=== PATIENT | female | born 1975 | race Caucasian/White ===

== ENCOUNTER 2016-06-13 18:22 | Inpatient (IN) | payer OTHER ==
[~2016-06-13] VITALS: Ht 170.2 cm; Wt 72.6 kg
--- NOTE | 2016-06-13 18:39 | NUR ---
NADJA ON PEER FROM [employer] AFTER PT CALLED 911 STATING SHE SAT IN HER CAR FOR ABOUT 25 MIN IN CLOSED GARAGE BEFORE SHE CHANGED HER MIND. PT ARRIVES [facility], CALM AND COOPERATIVE REPORTS SAME AND STATES "IT WAS A MISTAKE, I DON'T FEEL SUICIDAL AT ALL, I WOULD NEVER DO THAT TO MY KIDS." REPORTS HX OF BIPOLAR.
--- NOTE | 2016-06-13 18:39 | NUR ---
PT DIRECT TO ROOM 4, RADIATION MONITOR AWARE OF SITTER ORDER, PT WANDED BY SECURITY, 1 BELONGINGS BAG TAKEN TO CLOSET BY SECURITY AND PT'S PURSE GIVEN TO SITTERS TO INVENTORY. STEPHEN ADAMS AT BEDSIDE.
--- NOTE | 2016-06-13 18:56 | ED PSYCHIATRIC COMPLAINT ---
History of Present Illness General Chief Complaint: Psychiatric Related Complaint Stated Complaint: SUICIDE ATTEMPT SAT IN CAR IN CLOSED GARAGE BIBA Source: patient Exam Limitations: no limitations Vital Signs & Intake/Output Vital Signs & Intake/Output Vital Signs Date Time Temp Pulse Resp B/P Pulse O2 O2 Flow FiO2 Ox Delivery Rate 06/20 0753 97.6 96 93/70 06/19 1945 96.6 85 107/60 Allergies Coded Allergies: Sulfa (Sulfonamide Antibiotics) (HIVES 06/13/16) Triage Note: BIBA ON PEER FROM [employer] POLICE AFTER PT CALLED 911 STATING SHE SAT IN HER CAR FOR ABOUT 25 MIN IN CLOSED GARAGE BEFORE SHE CHANGED HER MIND. PT ARRIVES AAO, CALM AND COOPERATIVE REPORTS SAME AND STATES "IT WAS A MISTAKE, I DON'T FEEL SUICIDAL AT ALL, I WOULD NEVER DO THAT TO MY KIDS." REPORTS HX OF BIPOLAR. Triage Nurses Notes Reviewed? yes HPI: 40-year-old female history of depression/bipolar disorder, suicide attempts in the past, brought in by ambulance with police on a peer after a suicide attempt. Patient states that she sat in her car with the car running in her garage with the garage doors closed attempt to kill herself approximately 25-30 minutes. She started feeling nauseous and lightheaded and started thinking about her 3 children, she changed her mind with going through with the suicide attempt and She feels though she cannot leave her kids without a mother, she turned off the car, went into the house and called 911. She states that the officers inside apartment checked the house for carbon monoxide poisoning and management was safe for her family to return, no was in the house at the time of the attempt. She no longer feels suicidal. She has previously attempted take pills into his head attempts, she denies alcohol or drug use or taking any pills today in the attempt to take her own life. Her children are at home with her and [id number] (BRYAN MITCHELL,HAYDEE) Reconcile Medications Aripiprazole (Abilify) 5 MG TABLET 5 MG PO 0800 mood stabilization Take 1 tablet by mouth every morning. Bupropion HCl (Wellbutrin XL) 150 MG TAB.ER.24H 1 TAB PO QAM depression Take 1 tablet by mouth daily. Escitalopram Oxalate (Lexapro) 10 MG TABLET 10 MG PO DAILY anxiety/depression Take 1 tablet by mouth every morning. Lamotrigine (Lamictal) 100 MG TABLET 100 MG PO BID MOOD STABILIZATION Take 1 tablet by mouth twice daily. [place] Carbonate 300 MG CAPSULE 300 MG PO 0800,2200 mood stabilization Take 1 capsule by mouth twice a day. Melatonin 3 MG TABLET 3 MG PO AT BEDTIME insomnia Take 1 tablet by mouth at bedtime. (MICHELLE COLORADO MD) Past History Travel History Traveled to [place] past 21 day No Medical History Any Pertinent Medical History? see below for history Psychiatric: bipolar disease, depression Psychosocial History What is your primary language Indonesian (HAYDEE BHARDWAJ) Surgical History Surgical History: non-contributory Family History Hx Contributory? No (MICHELLE COLORADO MD) Review of Systems Review of Systems Constitutional: Reports: see HPI. EENTM: Reports: no symptoms. Respiratory: Reports: no symptoms. Cardiovascular: Reports: no symptoms. GI: Reports: no symptoms. Genitourinary: Reports: no symptoms. Musculoskeletal: Reports: no symptoms. Skin: Reports: no symptoms. Neurological/Psychological: Reports: see HPI. Hematologic/Endocrine: Reports: no symptoms. Immunologic/Allergic: Reports: no symptoms. All Other Systems: Reviewed and Negative (HAYDEE BHARDWAJ) Physical Exam Physical Exam General Appearance: well developed/nourished, mild distress Head: atraumatic Eyes: Bilateral: PERRL, EOMI. Ears, Nose, Throat: normal pharynx, normal ENT inspection, hearing grossly normal Neck: normal inspection, supple Respiratory: normal breath sounds Cardiovascular: regular rate/rhythm Gastrointestinal: soft, non-tender Extremities: normal range of motion Neurological/Psychiatric: no motor/sensory deficits, awake, alert, normal mood/ affect, calm, transfusion nurse II-XII nml as tested Appearance/Memory/Insight: appropriate appearance, appropriate insight, denies illness Behavoir/Eye Contact/Speech: cooperative Thoughts/Hallucinations: normal thought pattern, no apparent hallucination Skin: intact, normal color, warm/dry (HAYDEE BHARDWAJ) SAD PERSONS Done? CRISIS CONSULT OBTAINED (MIROSLAVA BERNARD,MICHELLE Lopez) Progress Differential Diagnosis: dementia, drug intoxication, drug overdose, drug withdrawal, electrolyte abnormality, encephalitis, hypoglycemia, hypothyroidism, IC hem/mass/tumor, meningitis Plan of Care: Orders Procedure Date/time Status Discharge from inpatient psych 06/20 UNK Active Hand-Off Endorsed To: MICHELLE COLORADO MD Endorsed Time: 1929 Pending: consult (psych) Comments: Patient placed on supplemental oxygen via nasal cannula for possible carbon monoxide toxicity. She is given Zofran 4 mg ODT for nausea and Tylenol for her headache Patient's carbon monoxide level is within normal limits. She is medical cleared for psychiatric evaluation. She will be evaluated by our crisis condition. She is signed out to Dr. Colorado at change of shift (HAYDEE BHARDWAJ) Departure Departure Condition: Stable Referrals: MENA ALMENDAREZ (PCP/Family) Departure Forms: Customer Survey General Discharge Information (HAYDEE BHARDWAJ) Departure Disposition: STILL A PATIENT Clinical Impression Primary Impression: Suicidal ideations Prescriptions: Current Visit Scripts Lamotrigine (Lamictal) 100 MG PO BID #28 TAB Take 1 tablet by mouth twice daily. Bupropion HCl (Wellbutrin XL) 1 TAB PO QAM #14 TAB Take 1 tablet by mouth daily. Escitalopram Oxalate (Lexapro) 10 MG PO DAILY #14 TAB Take 1 tablet by mouth every morning. Aripiprazole (Abilify) 5 MG PO 0800 #14 Take 1 tablet by mouth every morning. [place] Carbonate 300 MG PO 0800,2200 #28 Take 1 capsule by mouth twice a day. Melatonin 3 MG PO AT BEDTIME #14 TAB Take 1 tablet by mouth at bedtime. Psych Admission Note Psychiatric Admission: I have seen and evaluated DARREL PARADA. I have also reviewed all the pertinent lab results and diagnostic results. DARREL PARADA will be admitted to our inpatient Psychiatric unit for treatment and care. PA/DIRECTOR EMPLOYEE COMMUNICATIONS Co-Sign Statement Statement: ED Attending supervision documentation- [X] I saw and evaluated the patient. I have also reviewed all the pertinent lab results and diagnostic results. I agree with the findings and the plan of care as documented in the PA's/DIRECTOR EMPLOYEE COMMUNICATIONS's documentation. [X] I have reviewed the ED Record and agree with the PA's/DIRECTOR EMPLOYEE COMMUNICATIONS's documentation. [] Additions or exceptions (if any) to the PAs/DIRECTOR EMPLOYEE COMMUNICATIONS's note and plan are summarized below: [Patient has been seen and evaluated with mental health clinician. Patient is medically cleared and is stable for admission to Inpatient Psychiatry.] (MICHELLE COLORADO MD) summarized below: [Patient has been seen and evaluated with mental health clinician. Patient is medically cleared and is stable for admission to Inpatient Psychiatry.] (MICHELLE COLORADO MD) Pending: consult (psych) Comments: Patient placed on supplemental oxygen via nasal cannula for possible carbon monoxide toxicity. She is given Zofran 4 mg ODT for nausea and Tylenol for her headache Patient's carbon monoxide level is within normal limits. She is medical cleared for psychiatric evaluation. She will be evaluated by our crisis condition. She is signed out to Dr. Colorado at change of shift (HAYDEE BHARDWAJ) Departure Departure Condition: Stable Referrals: MENA ALMENDAREZ (PCP/Family) Departure Forms: Customer Survey General Discharge Information (HAYDEE BHARDWAJ) Departure Disposition: STILL A PATIENT Clinical Impression Primary Impression: Suicidal ideations Psych Admission Note Psychiatric Admission: I have seen and evaluated DARREL PARADA. I have also reviewed all the pertinent lab results and diagnostic results. DARREL PARADA will be admitted to our inpatient Psychiatric unit for treatment and care. PA/DIRECTOR EMPLOYEE COMMUNICATIONS Co-Sign Statement Statement: ED Attending supervision documentation- [X] I saw and evaluated the patient. I have also reviewed all the pertinent lab results and diagnostic results. I agree with the findings and the plan of care as documented in the PA's/DIRECTOR EMPLOYEE COMMUNICATIONS's documentation. [X] I have reviewed the ED Record and agree with the PA's/DIRECTOR EMPLOYEE COMMUNICATIONS's documentation. [] Additions or exceptions (if any) to the PAs/DIRECTOR EMPLOYEE COMMUNICATIONS's note and plan are summarized below: [Patient has been seen and evaluated with mental health clinician. Patient is medically cleared and is stable for admission to Inpatient Psychiatry.] (MIROSLAVA BERNARD,MICHELLE Lopez)
[2016-06-13] MEDS ORDERED: CLONAZEPAM0.5 M2 PO (19:10)
[2016-06-13] MEDS ORDERED: OXYCODONE HCL10 M2 PO (19:10)
[2016-06-13] MEDS ORDERED: ESCITALOPRAM OX10 MG PO (19:11)
[2016-06-13] MEDS ORDERED: CARISOPRODOL350 M1 PO (19:11)
--- NOTE | 2016-06-13 19:11 | NUR ---
BLOOD SENT (SST/LAV) AND [facility] CALLED TO RT FOR PICKUP, PLACED ON ICE
[2016-06-13] MEDS ORDERED: BUPROPION XL150 MG PO (19:12)
[2016-06-13] MEDS ORDERED: LIDOCAINE1 EACH TOP (19:12)
[2016-06-13] MEDS ORDERED: LAMOTRIGINE100 M2 PO (19:13)
[2016-06-13] MEDS ORDERED: TREXIMET 85-501 EACH PO (19:13)
[2016-06-13] MEDS ORDERED: DUEXIS 800-26.1 EACH PO (19:14)
[2016-06-13 19:17] LABS: ABSOLUTE BASOPHIL COUNT 0 /CUMM (0.0-0.2); ABSOLUTE EOSINOPHIL COUNT 0.2 /CUMM (0.0-0.7); ABSOLUTE GRANULOCYTE CT 2.3 /CUMM (1.4-6.5); ABSOLUTE LYMPH COUNT 1.9 /CUMM (1.2-3.4); ABSOLUTE MONOCYTE COUNT 0.4 /CUMM (0.10-0.60); BASOPHIL % 0.6 % (0.0-2.0); EOSINOPHIL % 4.9 % (0-5); GRANULOCYTE % 47.5 % (42.2-75.2); HEMATOCRIT 37.9 % (37-47); MEAN CORPUSCULAR HGB 30.5 PG (27.0-31.0); MEAN CORPUSCULAR HGB CONC 33.7 G/DL (33.0-37.0); MEAN CORPUSCULAR VOLUME 90.5 FL (81.0-99.0); MEAN PLATELET VOLUME 7.6 FL (7.4-10.4); PLATELET COUNT 233 /CUMM (130-400); RBC DISTRIBUTION WIDTH 13.9 % (11.5-14.5); RED BLOOD CELL CT 4.19 /CUMM (4.20-5.40); WHITE BLOOD CELL COUNT 4.8 /CUMM (4.8-10.8)
--- NOTE | 2016-06-13 19:20 | NUR ---
MEDICATED PER EMAR FOR NAUSEA AND C/O HEADACHE, CRISIS AT BEDSIDE
--- NOTE | 2016-06-13 20:24 | NUR ---
PT MEDICALLY CLEARED. PT HAS BEEN COOPERATIVE AND FAMILY ALLOWED TO VISIT. PT BECAME VERY UPSET WHEN CRISIS INFORMED HER OF POSSIBLE ADMISSION, YELLING "I'M NOT STAYING IN THE HOSPITAL!" PT CALMER WITH FAMILY AT BEDSIDE. REPORT GIVEN TO CRISIS RN IRENA AND PT WALKED TO [facility] BY STAFFING MANAGER.
--- NOTE | 2016-06-13 20:26 | ED PSYCH CRISIS CONSULTATION ---
Crisis Consult Basic Assessment Date of Consult: 06/13/16 Responsible Person/Accompanied By: None - Brought in by ambulance. Insurance Authorization: Insurance #1: Insurance name: [facility] Phone number: Policy number: [id number] Group number: [id number] Authorization number: ED Provider: Patient's ED Provider: HAYDEE BHARDWAJ Primary Care Physician: Patient's PCP: MENA ALMENDAREZ PCP's Current Psychiatrist: Shima Taylor, [facility] Chief Complaint: Psychiatric Related Complaint Patient's Quote: "I have bipolar - since 27...I would love for this to be over. " Present Illness: Patient is a 40 year old female who was brought in to the emergency department by ambulance after pt. called after attempting suicide by carbon monoxide asphyxiation. Patient was home by herself and went to the [facility] and stayed in her vehicle with the engine on and doors closed for about ~25 minutes. Patient decided to end the attempt after having thoughts of her family and her children. Patient has a history of bipolar depression since age 27. Patient reports onset of depressive symptoms since adolescence. Patient reports two prior suicide attempts i.) age 17 by vehicular carbon monoxide asphyxiation in an attempt similar to today's ii.) age 23 by ingestion of several flexiril pills. Patient has been treated for more than ten years by her current CATTLE KNOCKER (Shima Sharma) and has been relatively stable during that time. Patient has infrequent appointments with the CATTLE KNOCKER ~ once ever six months. Patient often has medication management appointments by phone per CATTLE KNOCKER. Pt. also was in psychotherapy with JAMI Sutherland. A barrier to more frequent appointments is distance as both providers are in the [place] area. Patient is prescribed Wellbutrin, Lexapro, and Lamictal. Patient was previously on Abilify but discontinued due to weight increase concerns. Patient reports her CATTLE KNOCKER has recently initiated the medication Vraylar but this medication has been difficult to obtain. Patient does not cite any specific triggers to today's suicide attempt. Patient has suffered significant losses in the past 6 months - pt.'s brother overdosed in December and her grandmother . Pt. has 3 young children ( 11 year old & 3 year old twins) which she indicates has been stressful. 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 Patient is not currently endorsing suicidal ideation. Patient is oriented x3 and denies current or past audiovisual hallucinations. Patient presents euthymic with flat affect. Patient is not interested in an inpatient psychiatric admission due to concerns of childcare. Patient's and family are supportive of patient and are willing to be involved in on-going treatment recommendations. Patient's Address: [address] [place] [address] [place] Other Phone Number: Who Do You Live With? Significant Other Family/Informants Interviewed: Allergies - Coded Allergies: Sulfa (Sulfonamide Antibiotics) (HIVES 06/13/16) Current Medications - Scheduled Medications Bupropion HCl (Bupropion XL) 150 MG TAB.ER.24H 1 TAB PO DAILY MENTAL HEALTH # 30 (Reported) Entered as Reported by TRENT ROSENTHAL on 06/13/161911 Escitalopram Oxalate 10 MG TABLET 1.5 TAB PO DAILY MENTAL HEALTH #45 ( Reported) Entered as Reported by TRENT ROSENTHAL on 06/13/161910 Lamotrigine 100 MG TABLET 250 MG PO DAILY MENTAL HEALTH #30 (Reported) Entered as Reported by TRENT ROSENTHAL on 06/13/161912 Scheduled PRN Medications Carisoprodol 350 MG TABLET 1 TAB PO PRN MUSCLE SPASMS #90 (Reported) Entered as Reported by TRENT ROSENTHAL on 06/13/161910 Clonazepam 0.5 MG TABLET 1 TAB PO PRN ANXIETY #60 (Reported) Entered as Reported by TRENT ROSENTHAL on 06/13/161909 Ibuprofen/Famotidine (Duexis 800-26.6 MG Tablet) 800 MG-26.6 MG TABLET 1 TAB PO PRN PAIN (Reported) Entered as Reported by TRENT ROSENTHAL on 06/13/161913 Lidocaine 5 % ADH..PATCH 1 PAT TOP PRN PAIN #30 (Reported) Entered as Reported by TRENT ROSENTHAL on 06/13/161911 Oxycodone HCl 10 MG TABLET 1 TAB PO PRN PAIN #200 (Reported) Entered as Reported by TRENT ROSENTHAL on 06/13/161909 Sumatriptan Succ/Naproxen Sod (Treximet 85-500 MG Tablet) 85 MG-500 MG TABLET 1 TAB PO PRN MIGRAINES #9 (Reported) Entered as Reported by TRENT ROSENTHAL on 06/13/161912 Laboratory Results: Laboratory Tests 06/13/161906: Bicarbonate Actual 27 H, Mixed VBG pH 7.35, Mixed VBG pCO2 49, Mixed VBG O2 Saturation 19 L, P-50 (Temp Corrected) YES, Carboxyhemoglobin 0.8 L, O2 Concentration % 2.5L, Temperature 96.7 L, O2 Delivery Method NC, Anion Gap 6, Estimated GFR > 60, BUN/Creatinine Ratio 17.5, Glucose 91, Calcium 10.9 H, Total Bilirubin 0.3, AST 19, ALT 30, Alkaline Phosphatase 46, Total Protein 6.9, Albumin 4.1, Globulin 2.8, Albumin/Globulin Ratio 1.5, CBC w Diff NO MAN DIFF REQ, RBC 4.19 L, MCV 90.5, MCH 30.5, RDW 13.9, MPV 7.6, Gran % 47.5, Lymphocytes % 39.7, Monocytes % 7.3, Eosinophils % 4.9, Basophils % 0.6, Absolute Granulocytes 2.3, Absolute Lymphocytes 1.9, Absolute Monocytes 0.4, Absolute Eosinophils 0.2, Absolute Basophils 0, PUBS MCHC 33.7, Phlebotomy Draw Site LEFT VENOUS AC, Serum Alcohol < 10.0 06/13/16 183: Urine Opiates Screen 113.00, Methadone Screen 42, Barbiturate Screen < 60, Ur Phencyclidine Scrn < 6.00, Amphetamines Screen < 100, U Benzodiazepines Scrn < 85, Urine Cocaine Screen < 50, Urine Cannabis Screen < 5.00 Past History Past Medical History Any Pertinent Medical History? 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 Psychiatric Treatment History Psych Treatment Psychiatric Treatment Yes Inpatient Treatment Yes ([facility]) Outpatient Treatment Yes (JAMI Mchugh & Halina Sharma [facility]) Location of Treatment [place], [place] Reason for Treatment Bipolar depression Dates of Treatment Same CATTLE KNOCKER for past 10+ years Response to Treatment CATTLE KNOCKER reports patient has been stable for extended period of time before this episode. Diagnosis by History: Major depressive disorder Bipolar disorder Substance Use/Abuse History Drug Use/Abuse Substances Used/Abused No First Use Patient denies Last Used N/A How much used/taken - How often - For how long - Route of use - Substance Abuse Treatment Substance Abuse Treatment Past Substance Abuse [place] No Inpatient Treatment No Location of Treatment - Reason for Treatment - Dates of Treatment - Response to Treatment - Comments: - Current Mental Status Mental Status Orientation: Person, Place, Situation Affect: Flat Speech: Pressured Neuro-vegetative: Anhedonia, Loss of Interest Appearance Appearance- Dress/Hygiene: Patient dressed in hospital attire with no remarkable features. Behaviors Thought Process: WNL Thought Content: WNL Memory: WNL Insight: Fair SI/HI Risk Assessment Past Suicidal Ideation/Attempts Yes (w/ attempts at age 17 & 23) Current Suicidal Ideation/Att Yes (Patient attempted this evening) Past Homicidal Ideation/Att: No Current Homicidal Ideation/Attempts No Degree of Intent: During evaluation,patient denies. Danger To: Self Gravely Disabled: Poor Impulse Control, Poor Judgment, Recent attempt Risk Factors: access to lethal means, history of suicide atmpts, SA/MH hospitalized, poor impulse control, harm to animals, lack of outcome concern Lethality Ratin PTSD Checklist PTSD Done? patient declined ED Management Sitter: Yes Restraints: No DSM5/PS Stressors/Medical Prob Diagnosis' (DSM 5, Stressors, Medical): F31.8 Bipolar Disorder II, Depressed Current GAF: 25 Comments: Recent suicide attempt Departure Disposition Psych Medical Clearance Date: 06/13/16 Medically Cleared at: 1929 Time Started: 1929 Time Ended: 2029 Psychiatrist Consulted: Dr. Carl Almanza M.D. Date Disposition Established: 06/13/16 Time Disposition Established: 1999 Plan for Disposition - Modality: Inpatient Psychiatry Facility: [facility] Rationale for Disposition: Patient will be admitted to [facility] on a voluntary basis (consent form signed). Patient is assessed with moderate to high risk of harm to self due to recent attempt of suicide. Although patient is currently denying suicidal ideation, intent or planning - further psychiatric evaluation and inpatient admission is warranted. This tech writer presented crisis evaluation and high - risk assessment to on-call psychiatrist Dr. Almanza - he is in agreement with disposition. Type of IP Admission: Voluntary Additional Instructions: Contact patient's CATTLE KNOCKER for discharge planning. Patient's would like to be involved with patient's treatment and discharge planning. Referrals CURTIS MITCHELL,MENA CEDILLO (PCP/Family)
--- NOTE | 2016-06-13 21:40 | NUR ---
Crisis consultation completed - patient's evaluation reviewed with on-call psychiatrist Dr. Almanza. Patient to be admitted to [facility] for a voluntary psychiatric admission. Voluntary consent form signed - Order to inpatient done
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
--- NOTE | 2016-06-13 22:09 | NUR ---
PT MEDICATED WITH ROXICODONE 10MG FOR HEADACHE, PIS 12/15. PT STATES TYLENOL DID NOT PROVIDE RELIEF
--- NOTE | 2016-06-13 23:20 | NUR ---
PT MEDICATED WITH KLONOPIN 0.5MG FOR ANXIETY. PT REFUSED PEPCID AND LEXAPRO, STATING SHE ONLY TAKES LEXAPRO IN THE MORNING. PT REPORTS HEADACHE REMAINS.
--- NOTE | 2016-06-13 23:43 | NUR ---
ASSUMED CARE OF PT PER ENA OSBORN. PT SLEEPING ON BED WITH RR, DOOR IS AJAR, SITER IN PLACE. WILL CONTINUE TO MONITOR
--- NOTE | 2016-06-14 01:47 | NUR ---
REPORT GIVEN TO ENA MILLER. MST JARED AND BILINGUAL PATIENT SUPPORT CASEWORKER JUNE MOVING PT DOWN TO CPS IN WHEEL CHAIR
[2016-06-14 02:34] VITALS: BP 101/69
--- NOTE | 2016-06-14 02:50 | NUR ---
PT ARRIVED VIA W/C FROM ER. FLAT AFFECT NOTED BUT CAN EASILY SMILE. [facility] CONTACT, SOFT SPOKEN AND OFFERS INFORMATION THROUGH INTERVIEW. NO OUTSTANDING MEDICAL ISSUES REPORTED.LIVES WITH AND 3 CHLDREN , 1 CHILD AND A SET OF TWWINS. NO ACTIVE SUICIDAL IDEATION NOTED. CONTRACTED FOR SAFETY.
--- NOTE | 2016-06-14 04:55 | NUR ---
SLEPT ONCE SHE WAS SHOWN TO HER ROOM. NO COMPLAINTS
[2016-06-14 07:55] VITALS: BP 97/51
--- NOTE | 2016-06-14 12:04 | CPS MD/APRN INITIAL ASSE PSYCH ---
Psychiatric Admission Teller's Note Reviewed: Yes Patient Seen and Examined: Yes Identifying Information: Client is a 40 year old female. Chief Complaint: "I'm fine" Reaction to Hospitalization: Client voluntarily came to the inpatient psychiatry unit but is hopeful to discharge soon to return to her young children. History of Present Illness Onset of Illness: Client came to ED on 06/13/16 after suicide attempt by CO poisoning during which she sat in her car, in the garage, with the car on for 25 minutes before deciding she did not want to kill herself. Client then dialed 911. Circumstances Leading to Admission: Client reports that she has had bipolar depression since age 27 but is unable to identify a specific precipitating event. Of note, her brother recently accidentally overdosed on opiates and her grandmother in December 2015. Problem(s) Justifying Need for Admission: suicide attempt (hx 3 suicide attempts total) symptoms of bipolar disorder Past Psychiatric History Past Diagnosis(es)- if any: depression bipolar depression bipolar I disorder Past Precipitating Factors- if any: Client reports that she has had several periods of severe depression for which she is unable to identify precipitating factors. She has had one episode of shala which was precipitated by misdiagnosis of MDD and antidepressant use without mood stabilizer. - Include inpatient and outpatient treatment Treatment History: Client has been in treatment for 10+ years with Diana Sharma APRN (release in chart) and Raz FARRELL. Past hospitalization at [facility] age 17 and age 23 post suicide attempts. Client endorses many years without symptoms prior to this episode. History of Suicide Attempts or Gestures Age 17 CO poisoning Age 23 intentional OD flexeril Age 40 CO poisoning Substance Abuse History: -denies tobacco use -denies other drug use (cannabis, hallucinogen, opiates, benzodiazepine abuse, cocaine) -endorses alcohol use, 1 glass of wine 2-4x per week Educated client on the risks of combining medicaitons with alcohol, particularly wellbutrin. Allergies: Coded Allergies: Sulfa (Sulfonamide Antibiotics) (HIVES 06/13/16) Home Med List: wellbutrin xl 150mg daily lexapro 15mg daily lamictal 250mg HS klonopin 0.5mg bid prn --endorses typically only taking at HS - Include any medical condition(s) that may - impact the patient's recovery/remission Past Medical History: -hx hammer toe -hx tonsillectomy -hx partial hysterectomy -hx hernia repair Past History Medical History Any Pertinent Medical History? unobtainable Neurological: NONE EENT: NONE Cardiovascular: NONE Respiratory: NONE Gastrointestinal: NONE Hepatic: NONE Renal: NONE Musculoskeletal: NONE Psychiatric: bipolar disease, depression Endocrine: NONE Blood Disorders: NONE Cancer(s): NONE SKEIN TIER/Reproductive: NONE History of MRSA: No Isolation History: Standard Surgical History Surgical History: BACK SURGERY PARTIAL HYSTERECTOMY Psychiatric Family/Social Hx Family History Psychiatric Illness: mother- borderline personality disorder Substance Use: brother- opiate use disorder ( 12/2015 OD) Suicides: mother- suicide attempt Social History Living Situation: with and children Significant Relationships (family/friends): Lists , mother, aunt, friends, dad, and uncle as supports. Education: Completed some college and attended dance school. 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 Legal: Denies. Healthly Behaviors Screening Tobacco Screening Tobacco Use from ED Docu: Never used - If tobacco counseling indicated - the following topics are required. - #1 Recognizing dangerous situations. - #2 Coping Skills. - #3 Basic information about quitting. Status of Tobacco Cessation Counseling: N/A B/C NO TOB USE Cessation Med Status: No Tobacco Use last 30d Alcohol Screening - ETOH screen POS if BAL >=80 or Audit-C>= M4/F3 Audit-C Score from Diag Assess: 4 Blood Alcohol Level: Laboratory Tests 06/13 1907 Toxicology Serum Alcohol (<10 MG/DL) < 10.0 Alcohol Use Screening Results: Pos per Audit C &/or BAL - If ETOH counseling indicated - the following topics are required. - #1 Express concern about the patient's - drinking at unhealthy levels, include informing - of national norms for moderate drinking: - men <= 14 drinks/week, max 4 drinks/occasion - women <= 7 drinks/week, max 3 drinks/occasion - #2 Providing feedback, including linking alcohol to - negative physical effects (liver injury, hypertension) - negative emotional effects (relationship problems and - depression) - negative occupational consequences (reduced work - performance) - #3 Advising the patient to abstain from alcohol or - to drink below national norms for moderate drinking - (as listed above). Status of ETOH Use Counseling: #1, #2 AND #3 Completed. Metabolic Screening - Screen if on a Neuroleptic Medication - Metabolic screening should include: - Blood Pressure, BMI, Glucose or Hgb A1c, & a - Lipid profile from within the past 365 days. Metabolic Screening ([x]) Not Applicable, patient not on a neuroleptic. OR () Patient on a neuroleptic(s) . Enter below results for Glucose or Hemoglobin A1C, and lipid panel if obtained during the last 365 days. BMI: 25.000 Blood Pressure: 97/51 Laboratory Results (If applicable): [ Lab Cholesterol 182 MG/DL 08/06/15 0938 Cholesterol/HDL Ratio 3 % 08/06/15 09 Glucose 91 mg/dL 06/13/16 1907 HDL Cholesterol 53 mg/dL 08/06/15 09 LDL Cholesterol, Calc 121 mg/dL 08/06/15 0938 Triglycerides 43 mg/dL 08/06/15937 ] Exam and Plan Mental Status Examination Ambulation Status: steady Appearance: casually dressed Attitude towards examiner: cooperative Psychomotor activity: calm Behavior: attentive and engaged Quality of speech: normal rate, rhythm, tone, volume Affect: congruent Mood: "fine" Suicidal Ideation: Denies Homicidal Ideation: Denies Hallucinations: Denies Paranoid/Delusional Material: Denies Difficulties with thought organization: none Thoughts goal-oriented and logical. Insight: limited insight into severity of suicide attempt Judgment: fair Orientation: oriented x4 Cognition: grossly intact Memory Function: grossly intact Estimate of intellectual functioning: average Assets/Strengths Patient Identified Assets/Strengths: "I am a good mom. I am really good at taking care of the kids. I do a good job at work." Impression/Plan Impression and Plan: Client presents with symptoms of bipolar disorder. She endorses predominant depression which includes feeling "low [mood], crappy", poor sleep, increased anxiety, anhedonia, and at times suicidal ideation/attempts. She endorses one manic episode >10 years ago where she had risky behaviors, decreased need for sleep, decreased eating, and hyperactivity. This manic episode was allegedly augmented by being misdiagnosed as MDD and being on antidepressants without a mood stabilizer. Client denies any history of psychotic features. Previous Medication Trials: -rexulti -abilify (weight gain but helpful) -paxil (endorses paxil withdrawal when tapered off) -client reports she was successfully on decreased doses of her medications during Outpatient prescriber recently added vraylar but client had not picked up prescription yet. - Include all active medical diagnosis that require tx DSM 5 Diagnosis(es): Bipolar I Disorder MRE depressed severe (F31.4) - Initial Tx Plan for Active Psych & Medical Conditions Treatment Plan: Client is a 40 year old female who comes to [facility] after presenting to the ED after a suicide attempt. Client was home alone when she attempted suicide by CO poisoning, however, after 25 minutes client decided she did not want to and she called 911. While in the hospital her is home caring for her children. Client endorses a history of bipolar I disorder without psychotic features, and she agrees with this diagnosis. Client is motivated to return home to her family. Client reports many years stable on current medication regimen, but she is agreeable to increase lamictal to 300mg daily total (150mg BID). She has been on 250mg for many months and endorses taking it regularly. This dose was confirmed by medication reconciliation. This senior mortgage underwriter recommended starting lithium for suicide prevention but client was not agreeable. This senior mortgage underwriter encouraged client to take time tonight and consider the addition of lithium tomorrow given her previous suicide attempts and recent suicide attempt. Will continue wellbutrin 150mg XL daily and lexapro 15mg daily at this time. Client also can utilize PRN klonopin. Depression 0/10 (10 worst) Anxiety 0/10 (10 worst) Denies SI/HI, AH/VH, PI. Denies hopeless/helpless emotions. Client reports that she was on combination drug alleve/pepcid which she used PRN and she does not want to be on pepcid while in the hospital. Denies stomach upset. Discontinue pepcid. Ordered TSH, FT4. - Factors that would help patient function - in a less restrictive setting. Factors: -absence of suicidal ideation -stablization of mood -treatment adherence
--- NOTE | 2016-06-14 12:43 | IP INCIDENTAL NOTE PSYCH ---
Incidental Note Notation: Phone call to outpatient prescriber Diana Sharma APRN. She reports that client has been in treatment with her since 2002 when she was on paxil and wellbutrin. In her opinion, client has more or less been "stable for 13 years." She reports client has bipolar disorder and overall has tolerated medications well. She reports this suicide attempt "came out of the blue" and she endorses client has had stressors including: of grandmother, of brother, children recently all having the stomach flu, and favorite nephew recently moving out of state. She has no problems or objections with lamcital increase. She states that previously client has tolerated abilify or rexulti adjunct well in periods of depression, however with time client experienced weight gain.
[2016-06-14 13:01] VITALS: BP 119/63
--- NOTE | 2016-06-14 14:22 | NUR ---
PT VISIBLE IN THE [facility] TODAY. HER GOAL WAS TO ADJUST TO THE [facility]. PT HAS BEEN COOPERATIVE WITH STAFF, AND INTERACTING WELL WITH OTHERS. IN THE [facility] PT HAS BEEN ATTENDING ALL OF THE GROUPS. WHEN ASKED PT DENIES THOUGHTS OF HURTING HERSELF.
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
--- NOTE | 2016-06-14 16:02 | SOCIAL WORKER PROG NOTE PSYCH ---
Social Work Progress Note Progress Note Pt reports she misses her kids, but is aware of the seriousnessof her suicide attempt, she feels overwhelmed, and stressed. 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 Pt reports she has Bipolar and is not being managed as it was before, since the of her twins. Pt reports she misses them, but states its "better to be here, than writing my obituary".
[2016-06-14 16:42] VITALS: BP 117/63
--- NOTE | 2016-06-14 19:09 | History & Physical ---
General Information and HPI MD Statement: I have seen and personally examined DARREL PARADA and documented this H&P. The patient is a 40 year old F who presented with a patient stated chief complaint of "I have bipolar since age 27 and I would love for this to be over". Source of Information: patient Exam Limitations: no limitations History of Present Illness: 40-year-old female with history of bipolar disorder called 911 after attempting suicide by carbon monoxide asphyxiation. Changed her mind and called 911 brought to the hospital face has had she has history of bipolar disease his age of 27. Has had 2 previous suicide attempts due to all this she is admitted for evaluation and treatment Allergies/Medications Allergies: Coded Allergies: Sulfa (Sulfonamide Antibiotics) (HIVES 06/13/16) Home Med list Bupropion HCl (Bupropion XL) 150 MG TAB.ER.24H 1 TAB PO DAILY MENTAL HEALTH ( Reported) Carisoprodol 350 MG TABLET 1 TAB PO PRN MUSCLE SPASMS (Reported) Clonazepam 0.5 MG TABLET 1 TAB PO PRN ANXIETY (Reported) Escitalopram Oxalate 10 MG TABLET 1.5 TAB PO DAILY MENTAL HEALTH (Reported) Ibuprofen/Famotidine (Duexis 800-26.6 MG Tablet) 800 MG-26.6 MG TABLET 1 TAB PO PRN PAIN (Reported) Lamotrigine 100 MG TABLET 250 MG PO DAILY MENTAL HEALTH (Reported) Lidocaine 5 % ADH..PATCH 1 PAT TOP PRN PAIN (Reported) Oxycodone HCl 10 MG TABLET 1 TAB PO PRN PAIN (Reported) Sumatriptan Succ/Naproxen Sod (Treximet 85-500 MG Tablet) 85 MG-500 MG TABLET 1 TAB PO PRN MIGRAINES (Reported) Compliance With Home Meds: FAIR Past History Travel History Traveled to [place] past 21 day No Medical History Any Pertinent Medical History? unobtainable Neurological: NONE EENT: NONE Cardiovascular: NONE Respiratory: NONE Gastrointestinal: NONE Hepatic: NONE Renal: NONE Musculoskeletal: NONE Psychiatric: bipolar disease, depression Endocrine: NONE Blood Disorders: NONE Cancer(s): NONE JUNIOR SYSTEMS ANALYST/Reproductive: NONE History of MRSA: No Isolation History: Standard Surgical History Surgical History: non-contributory Past Family/Social History Psychosocial History Where do you live? 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 Exam & Diagnostic Data Last 24 Hrs of Vital Signs/I&O Vital Signs Date Time Temp Pulse Resp B/P Pulse O2 O2 Flow FiO2 Ox Delivery Rate 06/14 1642 77 117/63 06/14 1301 90 119/63 06/14 0755 97.1 71 97/51 06/14 0234 96.7 61 18 101/69 96 06/13 2322 98.2 80 16 120/84 98 Room Air 06/13 2321 Room Air 06/13 1947 99 Intake & Output 06/14 1600 06/14 0800 06/14 0000 Intake Total Output Total Balance Patient 160 lb 160 lb Weight Physical Exam General Appearance Alert, Oriented X3, Cooperative, No Acute Distress Skin No Rashes, No Breakdown HEENT Atraumatic, PERRLA, EOMI, Mucous Membr. moist/pink Neck Supple, No JVD, No thryomegaly, +2 Carotid Pulse wo Bruit Lymphatic Axillary nl, Cervical nl Cardiovascular Regular Rate Lungs Clear to Auscultation, Normal Air Movement Abdomen Normal Bowel Sounds, Soft, No Tenderness, No Hepatospenomegaly, No Masses Neurological Exam Findings: Normal Gait, Normal Speech, Strength at 5/5 X4 Ext, Normal Tone, Sensation Intact, Cranial Nerves 3-12 NL, Reflexes 2+ Cranial Nerves II through XII: Intact Last 24 Hrs of Labs/Anuj: Laboratory Tests 06/13/161906: Bicarbonate Actual 27 H, Mixed VBG pH 7.35, Mixed VBG pCO2 49, Mixed VBG O2 Saturation 19 L, P-50 (Temp Corrected) YES, Carboxyhemoglobin 0.8 L, O2 Concentration % 2.5L, Temperature 96.7 L, O2 Delivery Method NC, Anion Gap 6, Estimated GFR > 60, BUN/Creatinine Ratio 17.5, Glucose 91, Calcium 10.9 H, Total Bilirubin 0.3, AST 19, ALT 30, Alkaline Phosphatase 46, Total Protein 6.9, Albumin 4.1, Globulin 2.8, Albumin/Globulin Ratio 1.5, TSH 3.350, Free T4 0.94, CBC w Diff NO MAN DIFF REQ, RBC 4.19 L, MCV 90.5, MCH 30.5, RDW 13.9, MPV 7.6, Gran % 47.5, Lymphocytes % 39.7, Monocytes % 7.3, Eosinophils % 4.9, Basophils % 0.6, Absolute Granulocytes 2.3, Absolute Lymphocytes 1.9, Absolute Monocytes 0.4 , Absolute Eosinophils 0.2, Absolute Basophils 0, PUBS MCHC 33.7, Phlebotomy Draw Site LEFT VENOUS AC, Serum Alcohol < 10.0 Assessment/Plan As Ranked By This Provider Problem List: 1. Suicidal ideations 2. Bipolar affective disorder Miscellaneous Miscellaneous Documentation Attending Case Discussed With: ROSARIO CHAMPION MD Primary Care Physician: MENA ALMENDAREZ Patient sees these Specialists Psychiatry Level of Patient Care: BLANCA Marks Consults Needed: Consulting Specialty: Psychiatry Consulting Physician: Dr. Champion Reason for Consult: suicidal ideations
--- NOTE | 2016-06-14 19:14 | SOCIAL WORKER TX PLAN PSYCH ---
Treatment Plan - Please Document: - Evidence that there is ongoing collaboration between - the patient and the interdisciplinary team, - including the patient's active participation and - responsibility for engaging in the treatment regimen, - and that the treatment plan is individualized and - relevant to the patient's conditions. - Treatment plan should reflect documentation indicating - that all active therapeutic efforts are included. 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 Patient Identified Trmt Goals: " I want to get my life in order, can't keep living this way." Discharge Plan: IOP Problem/Goals #1 Problem #1: self-harm behaviors Goal (Short Term): Today I will attend 2 groups Today I will identify 2 stressors Today I will identify 2 positive supports Today I will work on recognizing 3 emotions I am feeling Goal (Correction): Be free of suicidal thoughts/attempts Develop 3 coping skills to deal with depression Identify 3 positive support systems to call in crisis Develop a crisis plan with 3 garza people Identify 2 positive traits per week about myself Identify 2 things I have to look forward to Identify 2 positive people in my life and 1 thing I appreciate about them Interventions: Learn ways to manage depressive symptoms accordingly and identify positive supports to manage life stressors and mood fluctuations. Modalities: Encourage groups, education on depression, provide CBT treatment, family meeting. DSM5/PS Stressors/Medical Prob Diagnosis' (DSM 5, Stressors, Medical): F31.8 Bipolar Disorder II, Depressed Current GAF: 25 Treatment Team - Responsibilities of members of the treatment team include: - Medication Management- MD or REAL ESTATE SALES MANAGER - Medication Administration and Monitoring- Nurse - Group Therapy- Occupational Therapist - 1:1 Therapy,Disch Planning,family involvement-Commercial Driver
[2016-06-14 20:22] VITALS: BP 124/66
--- NOTE | 2016-06-14 22:45 | NUR ---
Pt is social, pleasant, respectful and appropriate with peers and staff, had numerous visitors and reported having + support systems in place and recognizing needing help which is why she is here, she shows insight and motivation for assistance from treatment team. Mood stable with full range/bright affect, did report taking 1mg Klonopin a couple times a week at night if needed to help her sleep however, pt has 0.5mg ordered currently, when asked if this 0.5 mg dose (given at 2200) will suffice for tonight and can be re-addressed in the morning (06/15/16) pt agreed and had no problem. No issues or complaints reported or observed.
--- NOTE | 2016-06-15 04:57 | NUR ---
PT APPEARED TO SLEEP THRU THE NIGHT.
[2016-06-15 07:37] VITALS: BP 93/55
[2016-06-15 07:59] VITALS: BP 93/55
--- NOTE | 2016-06-15 08:58 | CP SOUTH PROGRESS NOTE PSYCH ---
Psych (Inpt) Progress Note Progress Note Progress Note: [I discussed this patient's progress to date, current mental status, treatment process in the context of the treatment plan, and discharge planning with staff/ team in the daily morning inpatient team meeting. I also met with the patient myself in individual session.] S: "I feel good" O: Current Medications Sig/Korin Start time Last Medication Dose Route Stop Time Status Admin Acetaminophen/ 1 TAB Q8P PRN 06/14 1545 AC 06/14 Butalbital/Caffeine PO 1753 Aripiprazole 5 MG 0800 06/16 0800 UNVr PO Aripiprazole 5 MG ONE TIME ONE 06/15 0845 UNVr PO 06/15 0846 Bupropion HCl 150 MG DAILY 06/14 1000 AC 06/15 PO 0750 Carisoprodol 350 MG Q6-PRN PRN 06/13 2100 AC PO Clonazepam 0.5 MG Q8P PRN 06/13 2100 AC 06/14 PO 06/20 2058 220 Escitalopram Oxalate 15 MG DAILY 06/13 220 AC 06/15 PO 0750 Famotidine 20 MG BID 06/13 2200 DC 06/14 PO 1219 Ibuprofen 800 MG Q8P PRN 06/13 2100 AC 06/14 PO 0942 Lamotrigine 150 MG BID 06/13 2200 AC 06/15 PO 0749 Oxycodone HCl 10 MG Q6-PRN PRN 06/13 2115 AC 06/13 PO 2209 Vital Signs Date Time Temp Pulse Resp B/P Pulse O2 O2 Flow FiO2 Ox Delivery Rate 06/15 758 97.3 95 93/55 06/15 736 97.3 95 93/55 06/14 2021 97.9 74 124/66 06/14 2021 97.9 74 124/66 06/14 1642 77 117/63 06/14 1301 90 119/63 Lab Free T4 0.94 ng/dL 06/13/161906 TSH 3.350 uIU/mL 06/13/161906 Depression: 0/10 (10 worst) Anxiety: 0/10 (10 worst) Denies SI/HI, AH/VH, PI. Denies hopelessness/helplessness. Mood: "relieved" Clear speech, slightly quick pace. Goal-directed thoughts. Eye contact WNL. Appears alert and oriented. By patient report: Weight: 157lbs, Height: 5' 7" A: Client is a 40 year old female with bipolar I disorder who was hospitalized after she called 911 post suicide attempt by CO asphyxiation. Client reports that she feels good today. She states she slept well last night and does not have any complaints about appetite or energy level. She reports her mother, father, [id number], [id number]-oww, , kids, brother, cousin, and two best friends all visited her last night on the unit. She appears pleased by the amount of support she is receiving. She denies any side effects from her current medicaiton regimen, nor any problems with the lamictal increase. She states, "I feel better today than Monday." She reports yesterday evening she had a migraine which was relieved by her PRN medications. Discussed this journalists and other writers's recommendation for the addition of lithium for suicide prevention and mood stabilization. Client continues to be hestitant to start lithium however reports she would be willing to restart abilify which she has used in the past with excellent effect. Client reports abilify has always been helpful but she had previously discontinued it due to weight gain. She wishes to restart it now, however, given it's past efficacy and her current state. Will start abilify 5mg daily. Client reports she was actively involved in Weight Watcher prior to admission and she will continue to adhere to Weight Watcher after discharge in an attempt to combat weight gain. This journalists and other writers also met with client in a family session with spouse Luis Eduardo and aunt Katya, along with social secretary Stacy Carrera. Client understands the risks, benefits, and side effects of his current medication regimen and is agreeable to continue taking them. P: 1. Start abilify 2. Continue other medications 3. Continue to provider psychosocial support 4. Ordered lipid panel
--- NOTE | 2016-06-15 10:04 | SOCIAL WORKER PROG NOTE PSYCH ---
Social Work Progress Note Progress Note Please include, when applicable: * Interviews with the patient * Interviews with family members * Assessments linked to the treatment plan * Additions to or changes in the treatment plan along with reasons for same * Contacts with family and significant others in treatment, including family meeting(s) * Family attitudes * Community resource contacts and liaison with other clinicians/agencies
[2016-06-15 12:20] VITALS: BP 92/60
[2016-06-15 12:40] VITALS: BP 92/60
--- NOTE | 2016-06-15 13:47 | NUR ---
PT VISIBLE IN THE [facility] TODAY. HER GOAL WAS "TO FEEL BETTER PHYSICALLY, TO FEEL BETTER MENTALLY". IN THE [facility] PT HAS BEEN ATTENDING GROUPS, AND INTERACTING WITH BOTH PEERS AND STAFF. PT HAS BEEN CALM, AND COOPERATIVE SHOWING GOOD INSIGHT. PT DENIES THOUGHTS OF HURTING SELF WHEN ASKED.
[2016-06-15 15:59] VITALS: BP 120/71
--- NOTE | 2016-06-15 16:17 | SOCIAL WORKER PROG NOTE PSYCH ---
Social Work Progress Note Progress Note Patient had family meeting today with her , Chilo, her aunt, Katya, this advertising copywriter and Evelia Del Real APRN. Chilo and Katya expressed concern over patients recent suicide attempt and discussed behaviors patientw as exhibitting prior to admission. 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 He reports that it appears she isolates in the evening when he returns home from work and has difficulty with sleep. We discused that both of these behaviors appear to be symptoms of depression and also coorelate with the potential of having suicidal thoughts/attempts. Patient was irritable during the meeting requesting discharge from the hospital, wanting to return home to her children. Patient appears to have poor insight and judgement into the severity of her attempt and mental health at present. Patients family is in support of her remaining in the hospital until we determine her clinically appropriate to step down to next level of care. Patient was offerred the option of signing 3 day paper which she did not accept. We also discussed our recommendation of patient stepping down to IOP post discharge from the hospital. Patient initially was resistent but with family encouragement and explaining the importance of a smooth transition back home, patient has agreed to attend IOP.
[2016-06-15 20:02] VITALS: BP 106/66
--- NOTE | 2016-06-15 22:42 | NUR ---
PT IS VISIBLE ON UNIT, VERY SOCIAL WITH PEERS AND STAFF. PT HAD MANY VISITORS THROUGHOUT THE EVENING. ATTENDED WRAP UP MEETING AND PARTICIPATED. VERY COOPERATIVE AND COMPLIANT. NO COMPLAINTS OR SI REPORTED. PT HAS A STABLE MOOD AND BRIGHT AFFECT.
--- NOTE | 2016-06-16 05:35 | NUR ---
PT APPEARED TO SLEEP AFTER PRNs VIANEY LUJAN, AND CONSTANZA AT 2245.
[2016-06-16 07:53] VITALS: BP 103/53
--- NOTE | 2016-06-16 11:01 | IP INCIDENTAL NOTE PSYCH ---
Incidental Note Notation: Phone conversation with outpatient prescriber Diana Sharma. Discussed client's progress to date. Diana reports that client has never been on doses of abilify higher than 5mg. She is supportive of this sign writer letterer or painter's recommendation that client be on lithium for bipolar and suicidal ideation prevention given the impulsivity of her suicide attempt.
--- NOTE | 2016-06-16 11:36 | CP SOUTH PROGRESS NOTE PSYCH ---
Psych (Inpt) Progress Note Progress Note Progress Note: [I discussed this patient's progress to date, current mental status, treatment process in the context of the treatment plan, and discharge planning with staff/ team in the daily morning inpatient team meeting. I also met with the patient myself in individual session.] S: "I feel like a counselor here." O: Current Medications Sig/Korin Start time Last Medication Dose Route Stop Time Status Admin Acetaminophen/ 1 TAB Q8P PRN 06/14 1545 AC 06/16 Butalbital/Caffeine PO 923 Aripiprazole 5 MG 00 06/16 08 AC 06/16 PO 0812 Bupropion HCl 150 MG DAILY 06/14 1000 AC 06/16 PO 0812 Carisoprodol 350 MG Q6-PRN PRN 06/13 2100 AC 06/16 PO 0813 Clonazepam 0.5 MG Q8P PRN 06/13 2100 AC 06/15 PO 06/20 2059 2245 Escitalopram Oxalate 15 MG DAILY 06/13 2200 AC 06/16 PO 0812 Ibuprofen 800 MG Q8P PRN 06/13 2100 AC 06/15 PO 1148 Lamotrigine 150 MG BID 06/13 2200 AC 06/16 PO 0811 Oxycodone HCl 10 MG Q6-PRN PRN 06/15 2245 AC 06/15 PO 2247 Oxycodone HCl 10 MG .STK-MED ONE 06/15 1437 DC PO 06/15 1438 Oxycodone HCl 10 MG Q6-PRN PRN 06/13 2115 DC 06/15 PO 1442 Laboratory Tests 06/16 06/16 0548 0548 Chemistry Hemoglobin A1c Pending Triglycerides (<150 mg/dL) 56 Cholesterol (<200 MG/DL) 175 LDL Cholesterol, Calc (65 - 129 mg/dL) 115 HDL Cholesterol (40 - 60 mg/dL) 49 Cholesterol/HDL Ratio (0.00 - 4.23 %) 4 Vital Signs Date Time Temp Pulse Resp B/P Pulse O2 O2 Flow FiO2 Ox Delivery Rate 06/163 97.4 92 103/53 06/15 2001 96.6 86 106/66 06/15 2001 96.6 86 106/66 06/15 1559 89 120/71 06/15 1240 96 92/60 06/15 1220 96 92/60 Depression 0/10 (10 worst) Anxiety 0/10 (10 worst) Denies SI/HI, AH/VH, PI. Denies hopelessness. Mood: "good" Clear speech, slightly quick pace. Goal-directed thoughts. Eye contact WNL. Alert and oriented x4. A: Client presents today in casual clothing. Client continues to exhibit denial of the severity of her suicide attempt, however her insight is improving. She reports "I sleep really well here." She states her appetite and energy level are both good. She denies any problems since abilify start. She states she was "a little anxious" after the family meeting yesterday because "it did not go well". This magnetic tape typewriter operator discussed client's tendency to provide help and support to others on the unit, and encouraged her to focus on her own recovery. Client verbalized understanding. Continued to recommend lithium for bipolar symptoms and antisuicidal properties. Client continues to be hesitant. Provided client with the option of increasing abilify to 10mg or starting lithium. Expressed that outpatient prescriber is supportive of lithium. Discussed the risks and side effects including kidney risk, thyroid risk, tremor, metabolic risks, and toxicity among other things. Client agreeable to start lithium. Will continue abilify at present. Client also elects to sign a three day paper for voluntary release. Client understands the risks, benefits, and side effects of his current medication regimen and is agreeable to continue taking them. P: 1. Start lithium 300mg BID, ordered lithium level for Monday 2. Continue abilify at this time 3. Continue lamictal, wellbutrin, lexapro 4. Continue klonopin PRN 5. Ordered EKG 6. Discontinued ibuprofen prn due to possible reaction with lithium
[2016-06-16 12:36] VITALS: BP 103/65
--- NOTE | 2016-06-16 13:47 | SOCIAL WORKER PROG NOTE PSYCH ---
Social Work Progress Note Progress Note Pt reports feeling better today, and in agreement with IOP. She states she was symptom free for so long, but now understands she need to do more then just med management. We also discussed safe and appropriate boundaries in regards to critical people in her life, and ways to help empower herself in raising her family. Pt affect was full, and she was looking forward to gaining more insight and stability while on unit.
--- NOTE | 2016-06-16 14:12 | NUR ---
PT IS COMPLIANT AND COOPERATIVE. PT IS OUT IN COMMUNITY INTERACTING WELL WITH STAFF AND PEERS. PT IS ATTENDING GROUPS. PT MOOD IS STABLE WTIH A FULL RANGE AFFECT. PT DENIES SI THOUGHTS. PT FEELS READY FOR DISCHARGE SOON AND [facility]
[2016-06-16 15:50] VITALS: BP 121/48
[2016-06-16 19:27] VITALS: BP 121/75
--- NOTE | 2016-06-16 22:05 | NUR ---
HAD GOOD VISIT WITH FAMILY THIS EVENING CHILDREN HERE FOR A VISIT. PT GIVES OTHERS ON UNIT ALOT OF EMOTIONAL SUPPORT.
[2016-06-17 08:03] VITALS: BP 111/70
--- NOTE | 2016-06-17 09:02 | CP SOUTH PROGRESS NOTE PSYCH ---
Psych (Inpt) Progress Note Progress Note [I discussed this patient's progress to date, current mental status, treatment process in the context of the treatment plan, and discharge planning with staff/ team in the daily morning inpatient team meeting. I also met with the patient myself in individual session.] S: "I've have alot of supports and know that I could reach out for help in the future." O: Current Medications Sig/Korin Start time Last Medication Dose Route Stop Time Status Admin Acetaminophen/ 1 TAB Q8P PRN 06/14 1545 AC 06/16 Butalbital/Caffeine PO 1839 Aripiprazole 5 MG 0800 06/16 0800 AC 06/17 PO 0810 Bupropion HCl 150 MG DAILY 06/14 1000 AC 06/17 PO 0810 Carisoprodol 350 MG Q6-PRN PRN 06/13 2100 AC 06/16 PO 2157 Clonazepam 0.5 MG Q8P PRN 06/13 2100 AC 06/16 PO 06/20 2058 215 Escitalopram Oxalate 15 MG DAILY 06/13 2200 AC 06/17 PO 0810 Ibuprofen 800 MG Q8P PRN 06/13 2100 DC 06/15 PO 1148 Lamotrigine 150 MG BID 06/13 2200 AC 06/17 PO 0811 [place] Carbonate 300 MG 0800,0 06/16 2200 AC 06/17 PO 0810 [place] Carbonate 300 MG ONE TIME ONE 06/16 1130 DC 06/16 PO 06/16 1131 1133 Oxycodone HCl 10 MG Q6-PRN PRN 06/15 2245 AC 06/16 PO 2158 No New labs [place] level scheduled 06/19/16 EKG 06/16/16 - SR, HR 65, [place] 136, QTC 387 Vital Signs Date Time Temp Pulse Resp B/P Pulse O2 O2 Flow FiO2 Ox Delivery Rate 06/17 0803 97.1 84 111/70 06/16 1927 96.6 96 121/75 06/16 1550 84 121/48 06/16 1236 81 103/65 anxiety 0/10 depression 2-07/15 Patient is comfortably dressed, well groomed with hair worn down. Affect is full range with good eye contact. Speech clear, slightly quick paced, and at times distracted. Describes mood as "fine," and reports resolution of SI since starting lithium. Denies current active/passive SI/HI, and endorses feeling safe on unit. Denies AH/VH, PI. Patient reports no adverse effects since starting lithium and is mindful of fluid intake to prevent dehydration. Sleep is "okay," and reports no concerns with appetite. Intermittent migraine, which predates lithium and reported prior benefit at home from ice packs. Denies tremor, akathesia, or TD movements. A: Patient recently started on lithium for mood stabilization and protective factors against suicide. Continues to exhibit some denial of severity of her sucide attempt, however insight is improving. Past/present symptoms and medication trials reviewed, patient is agreeable with bipolar diagnosis and understands rationale for mood stabilizer. Reviewed current antidepressant use and potential for activation in bipolar disorder. Patient is agreeable to decrease lexapro 10mg, and requests that functional tester typewriters contact/update her outpatient prescriber Diana Sharma APRN which functional tester typewriters left a voicemail. Risks, benefits and potential side effects of medications reveiwed with patient who is in agreement with plan. These include kidney risk, thyroid risk, tremor, metabolic risks, and toxicity; patient informed of need for routine labwork, good hydration, and avoiding use of Ibuprofen. Patient wishes to continue mental health treatment at [facility] after [facility] discharge. P: decrease lexapro 10mg continue all other medications lithium level, CR and TSH on 06/19/16 adjust/increase lithium to level/symptoms continue to monitor client on unit for safety, SI, mood lability, sleep discharge planning per primary team
[2016-06-17 12:17] VITALS: BP 111/75
--- NOTE | 2016-06-17 14:06 | NUR ---
PT HAS BEEN VISIBLE IN THE [facility] THROUGHOUT THE DAY. HER GOAL WAS TO ADJUST TO NEW MEDICATIONS. IN THE [facility] PT HAS BEEN ACTIVELY PARTICIPATING IN GROUPS, AND INTERACTING WELL WITH HER PEERS. SHE HAS BEEN COOPERATIVE WITH STAFF DIRECTION, AND DENIES THOUGHTS OF HARMING SELF WHEN ASKED.
[2016-06-17 15:52] VITALS: BP 125/68
--- NOTE | 2016-06-17 15:52 | SOCIAL WORKER PROG NOTE PSYCH ---
Social Work Progress Note Progress Note Patient presents today with brighter mood and affect congruent to mood. Patient reports being grateful for this experience and understanding the importance of this hospitalization. Patients insight and judgement appears to have improved and she refrained from minimizing her suicide attempt today. Patient shared a great deal about her relationship with her mother growing up and the stress that put on her family. She shared briefly about her brothers recent OD and the impact that had on her and her family. Patient was able to conceptualize multiple stressors that initially she did not recognize, but now recognizes as leading up to this recent suicide attempt. Patient expressed her interest in attending IOP with and was able to recognize the importance of putting aside time for herself. Patient also expressed a desire to minimize her alcohol intake going forward and plans to only drink socially on the weekends. Patient reports that she does not binge on alcohol but often uses it as a way to wind down at the end of the day. Her is in agreement that they both can refrain from drinking during the week and only use recreationally going forward.
[2016-06-17 19:30] VITALS: BP 136/78
--- NOTE | 2016-06-17 20:36 | NUR ---
PT IS STABLE WITH FULL RANGE OF AFFECT. PT IS MANIC AT THE MOMENT. PT WAS ASKED TO TAKE HER HOMEMADE COOKIES OUT OF THE PLASTIC BAG AND SHE SWUNG THE PLASTIC BAG IN FRONT OF THE MHW'S FACE. APPROPRIATE FOR THE MOST PART. LIKES TO BE INVOLVED IN HER PEERS CARE BUT ENCOURAGED TO FOCUS ON HERSELF. VS ARE STABLE AND DENIES ANY SI/HI TO THIS MHW.
--- NOTE | 2016-06-18 05:42 | NUR ---
PT APPEARED TO SLEEP.
[2016-06-18 08:11] VITALS: BP 98/49
[2016-06-18 12:34] VITALS: BP 124/70
--- NOTE | 2016-06-18 13:47 | NUR ---
PT IS COMPLIANT AND COOPERATIVE. MOOD IS STABLE WITH A FULL RANGE OF AFFECT. PT DENIES SI AT THIS TIME, NO COMPLAINTS OFFERED. PT IS PRESENT IN THE COMMUNITY AND INTERACTING WELL WITH PEERS AND STAFF. PT IS ATTENDING GROUPS. VITALS ARE STABLE, APPETITE IS GOOD.
--- NOTE | 2016-06-18 15:22 | CP SOUTH PROGRESS NOTE PSYCH ---
Psych (Inpt) Progress Note Progress Note Include the following elements, when applicable: Involvement in the active treatment of the patient with behavioral observations of the patient and the patient's response to the treatment. Review of the ongoing treatment process in the context of the treatment plan. Indication of how multi-disciplinary staff members are carrying out the treatment plan. Plans for future interventions and recommendations for revision of the treatment plan. Liaison with other physicians/providers. Progress Note: Pt seen after visit with family. Feels it went very well. Notes improved outlook. No side effects of lithium but patient is concerned about oversedation. Denies SI or HI. Current Medications Sig/Korin Start time Last Medication Dose Route Stop Time Status Admin Acetaminophen/ 1 TAB Q8P PRN 06/14 1545 AC 06/17 Butalbital/Caffeine PO 2300 Aripiprazole 5 MG 0800 06/16 0800 AC 06/18 PO 0831 Bupropion HCl 150 MG DAILY 06/14 1000 AC 06/18 PO 0831 Carisoprodol 350 MG Q6-PRN PRN 06/13 2100 AC 06/17 PO 211 Clonazepam 0.5 MG Q8P PRN 06/13 2100 AC 06/17 PO 06/20 Escitalopram Oxalate 10 MG DAILY 06/18 1000 AC 06/18 PO 0831 Escitalopram Oxalate 15 MG DAILY 06/13 220 DC 06/17 PO 0810 Lamotrigine 100 MG BID 06/18 2200 AC PO Lamotrigine 150 MG BID 06/13 2200 DC 06/18 PO 0831 [place] Carbonate 300 MG 0800,0 06/16 2200 AC 06/18 PO 0831 Melatonin 3 MG AT BEDTIME PRN 06/18 1500 AC PO Oxycodone HCl 10 MG Q6-PRN PRN 06/15 2245 AC 06/17 PO 2115 Laboratory Tests 06/16 06/16 0548 0548 Chemistry Hemoglobin A1c (<5.7) 5.4 Triglycerides (<150 mg/dL) 56 Cholesterol (<200 MG/DL) 175 LDL Cholesterol, Calc (65 - 129 mg/dL) 115 HDL Cholesterol (40 - 60 mg/dL) 49 Cholesterol/HDL Ratio (0.00 - 4.23 %) 4 Vital Signs Date Time Temp Pulse Resp B/P Pulse O2 O2 Flow FiO2 Ox Delivery Rate 06/18 1234 93 124/70 06/18 0811 97.3 96 98/49 06/17 1930 96.8 90 136/78 06/17 1552 84 125/68 MSE Appears as stated age. Cooperative behavior, good, appropriate eye contact. Nl speech rate and prosody. No psychomotor retardation or agitation. Mood better Affect slight irritable, constricted, appropriate, non-liable. Linear and goal directed thought process. Denies SI or HI. Does not appear to be responding to internal stimuli. Denies AVHs, paranoia, or delusions. I/J: limited A/P: Pt with BP disorder with improved mood. Given now on lithium, would be reasonable to start to taper the lamictal. - Spoke with Dr. Shima Mcmullen, agreed with taper of lamictal - Would like to be updated prior to discharge - Added melatonin for sleep - Pt to do IOP upon discharge - Pt education done on lithium and mood stablizers
[2016-06-18 16:21] VITALS: BP 142/83
[2016-06-18 19:57] VITALS: BP 138/91
--- NOTE | 2016-06-18 22:36 | NUR ---
PT IS VISIBLE ON UNIT, VERY SOCIAL WITH PEERS AND STAFF. PT HAD MANY VISITORS THROUGHOUT THE EVENING. PLEASANT AND COOPERATIVE. ATTENDED WRAP UP MEETING AND PARTICIPATED. NO COMPLAINTS OR SI REPORTED. PT HAS A STABLE MOOD AND FULL RANGE AFFECT.
[2016-06-19 08:14] VITALS: BP 120/69
[2016-06-19 08:25] LABS: LITHIUM 0.5 mmol/L (0.6-1.2)
--- NOTE | 2016-06-19 08:49 | CP SOUTH PROGRESS NOTE PSYCH ---
Psych (Inpt) Progress Note Progress Note Include the following elements, when applicable: Involvement in the active treatment of the patient with behavioral observations of the patient and the patient's response to the treatment. Review of the ongoing treatment process in the context of the treatment plan. Indication of how multi-disciplinary staff members are carrying out the treatment plan. Plans for future interventions and recommendations for revision of the treatment plan. Liaison with other physicians/providers. Progress Note: Pt reports feeling much better today. She slept very well with addition of melatonin. She notes that mood has improved so much that, "I can't even think about suicide, I can't believe that was me." She denies SI or HI. Spoke about the of her brother by accidental overdose after taking cocaine laced with fentenyl. Spoke about her parents as well. Current Medications Sig/Korin Start time Last Medication Dose Route Stop Time Status Admin Acetaminophen/ 1 TAB Q8P PRN 06/14 1545 AC 06/18 Butalbital/Caffeine PO 1611 Aripiprazole 5 MG 0800 06/16 0800 AC 06/19 PO 0836 Bupropion HCl 150 MG DAILY 06/14 1000 AC 06/19 PO 0836 Carisoprodol 350 MG Q6-PRN PRN 06/13 2100 AC 06/18 PO 1611 Clonazepam 0.5 MG Q8P PRN 06/13 2100 AC 06/17 PO 06/20 Escitalopram Oxalate 10 MG DAILY 06/18 1000 AC 06/19 PO 0836 Lamotrigine 100 MG BID 06/18 2200 AC 06/19 PO 0835 Lamotrigine 150 MG BID 06/13 2200 DC 06/18 PO 0831 [place] Carbonate 300 MG 0800,06/16 2200 AC 06/18 PO 2153 Melatonin 3 MG AT BEDTIME NEED.. 06/19 2199 DC PO Melatonin 3 MG AT BEDTIME 06/19 2199 AC PO Melatonin 3 MG AT BEDTIME PRN 06/18 1500 AC 06/18 PO 06/19 2158 215 Oxycodone HCl 5 MG .STK-MED ONE 06/18 2151 DC PO 06/18 215 Oxycodone HCl 10 MG Q6-PRN PRN 06/15 2245 AC 06/19 PO 0838 Laboratory Tests 06/19 0600 Chemistry BUN (7 - 17 mg/dL) 13 Creatinine (0.5 - 1.0 mg/dL) 0.8 Estimated GFR (>60 ml/min) > 60 BUN/Creatinine Ratio (7 - 25 %) 16.3 TSH (0.270 - 4.200 uIU/mL) Pending Toxicology [place] (0.6 - 1.2 mmol/L) 0.5 L Vital Signs Date Time Temp Pulse Resp B/P Pulse O2 O2 Flow FiO2 Ox Delivery Rate 06/19 0814 96.9 94 120/69 06/18 195 96.8 138/91 06/18 1621 63 142/83 06/18 1234 93 124/70 MSE Appears as stated age. Cooperative behavior, good, appropriate eye contact. Nl speech rate and prosody. No psychomotor retardation or agitation. Mood better Affect euthymic and bright, not irritable, full range, appropriate, non-liable. Linear and goal directed thought process. Denies SI or HI. Does not appear to be responding to internal stimuli. Denies AVHs, paranoia, or delusions. I/J: limited A/P: Pt with BP disorder with improved mood lability and mood state on lithium. - Continue current medication regimen, lithium level 0.5 - Lamictal taper to occur over time, started one day ago - [place]couar[place] intergration into the milieu
[2016-06-19 12:15] VITALS: BP 130/64
--- NOTE | 2016-06-19 13:12 | NUR ---
Pt is A&O X 3, compliant with medication and group therapies. Pt is present in the community, interacts with other peers and staff members. Pt reported pain/ discomfort due to her congenital cervical spinal stenosis and was provided with cold compress as requsted to produce relief. Mood and affect are appropriate, stable vital sign, denies thought of self-harm and to someone else.
[2016-06-19 16:12] VITALS: BP 124/64
[2016-06-19 19:46] VITALS: BP 107/60
--- NOTE | 2016-06-19 21:31 | NUR ---
PT IS VISIBLE ON UNIT, SOCIAL WITH PEERS AND STAFF. AT TIMES PT CAN BE HYPERVERBAL, PRESSURED AND LOUD BUT OVERALL COOPERATIVE AND COMPLIANT. NO COMPLAINTS OR SI REPORTED. PT HAS A STABLE MOOD AND FULL RANGE AFFECT.
--- NOTE | 2016-06-20 06:51 | NUR ---
PATIENT SLEPT ALL NIGHT.
[2016-06-20 07:53] VITALS: BP 93/70
[2016-06-20] MEDS ORDERED: LEXAPRO10 M1 PO (08:55)
[2016-06-20] MEDS ORDERED: LAMICTAL100 M2 PO (08:55)
[2016-06-20] MEDS ORDERED: LITHIUM CARBON300 M4 PO (08:55)
[2016-06-20] MEDS ORDERED: ABILIFY5 M1 PO (08:55)
[2016-06-20] MEDS ORDERED: WELLBUTRIN XL150 M2 PO (08:55)
[2016-06-20] MEDS ORDERED: MELATONIN3 M4 PO (08:55)
--- NOTE | 2016-06-20 09:09 | DISCHARGE SUMMARY REPORT-PSYCH ---
Visit Information Visit Dates/Diagnosis' Admission Date: 06/13/16 Discharge Date: 06/20/16 Reason for Admission: Suicide attempt by carbon monoxide poisoning. Psy Discharge Primary Diag: Bipolar I disorder, MRE depressed severe Psy Discharge Secondary Diag: Migraines Hospital Course Significant Lab Findings: Lab Calcium 10.9 mg/dL H 06/13/16 1907 RBC 4.19 /CUMM L 06/13/16 1907 [place] 0.5 mmol/L L 06/19/16 0600 06/16/16 EKG: Sinus rhythm with rate of 65. Small inferior Q waves, QTc:387; QT: 372. Normal EKG confirmed by park interpretive ranger Dr. Moises Valverde. Course Complications: None. Consultations: The patient was seen for admission history and physical by Dr. James Orozco. Please see his note for additional information. Allergies: Coded Allergies: Sulfa (Sulfonamide Antibiotics) (HIVES 06/13/16) Hospital Course/TX Response: The patient was monitored on the unit for safety, suicidal ideation, and mood disorder. The patient participated in multimodal treatments on the unit. Lamictal was initially increased from 250mg daily to 150mg twice a day for mood stabilization, and later during the hospitalization was decreased to 100mg BID after the patient was agreeable to starting [place] 300mg BID for anti-suicidal proprerties and mood stabilization. Lexapro was decreased from 15mg daily to 10mg daily. Wellbutrin XL 150mg was continued daily for depression. Abilify 5mg was started for mood stabilization. Melatonin 3mg was started at bedtime for insomnia. Klonopin 0.5mg [id number] prn was discontinued for anxiety due to limited use during the hospital course, and an absence of benzodiazepine withdrawal symptoms. The patient tolerated all medications well and denied untoward medication effects. During the hospital course, the patient's mood, affect, and insight improved. Suicidal ideation remitted. A family meeting was held with the patient, her Luis Eduardo, her aunt Katya, Stacy Ji LCSW, and Evelia Del Real APRN. The patient's treatment progress, medication regimen, level of safety and discharge planning were reviewed. The patient's family and patient were ultimately in favor of the patient discharging to [facility] level of care for after care treatment. On the date of discharge, 06/20/16, this was this conventional underwriter's first encounter with the patient on CPS. Her discharge was reviewed at length with Stacy Ji LCSW (the patient's primary CPS clinician) and the CPS treatment team. The patient was deemed psychiatrically cleared from inpatient level of care by the CPS treatment team with follow-up to [facility] level of care. On the date of discharge, 06/20/16, the patient presented alert and oriented to person, place, time and situation. Speech was normal in rate, tone and volume. Eye contact was appropriate. Affect was full-range, non-labile. Mood was "really great!" She had no complaints. Patient reported anxiety of 0/10 (10 being the worst) and sadness/depression of 0/10 (10 being the worst). She denied feeling hopeless, helpless, worthless, and guilty. She denied passive and active suicidal ideation, plans and intent. She denied homicidal ideation. She stated and also believed she will not harm herself or others. She identified protective factors of "my " and "my 3 children." She denied auditory and visual hallucinations. Thought process was organized, linear and goal-directed. Thought content was appropriate. Cognition was grossly intact. There was no evidence of paranoia or felipe delusions. Patient appeared motivated to attend IOP intake today at 11:15AM, and to continue treatment in [facility] program for support and symptom/medication management. Reviewed with patient that Lamictal was decreased on 06/19/16 from 250mg daily to 100mg BID, and recommended continued taper as instructed by IOP prescriber, since she was started on [place] for mood stabilization and anti-suicidal properties. She reported tolerating all medications well and denied untoward medication effects. Patient was agreeable to continue taking prescribed medications. Patient reported feeling safe and ready for discharge. Discharge HBIPS - Tobacco Use Treatment Offered Post DC Medications Offered: NA-No Tob Use >30 days Post DC Tobacco Treatment Plan: NA-No Tobacco use >30days - EtOH/Drug Use D/O Treatment Offered Post DC Medications Offered: NA-No EtOH/Drug Use D/O Post DC EtOH/SubAbuse TX Plan: NA-No EtOH/Drug Use D/O Metabolic Screening - Screen if on a Neuroleptic Medication - Metabolic screening should include: - Blood Pressure, BMI, Glucose or Hgb A1c, & a - Lipid profile from within the past 365 days. Metabolic Screening () Not Applicable, patient not on a neuroleptic. OR ([X]) Patient on a neuroleptic(s) . Enter below results for Glucose or Hemoglobin A1C, and lipid panel if obtained during the last 365 days. BMI: 25.000 Blood Pressure: 93/70 Laboratory Results (If applicable): Lab Cholesterol 175 MG/DL 06/16/16 0548 Cholesterol/HDL Ratio 4 % 06/16/16 0548 HDL Cholesterol 49 mg/dL 06/16/16 0548 Hemoglobin A1c 5.4 06/16/16 0548 LDL Cholesterol, Calc 115 mg/dL 06/16/16 0548 Triglycerides 56 mg/dL 06/16/16 0548 Discharge Instructions General Discharge Information Discharge Medications: Discharge Medications- (Dose, route, freq, indication): HOME MEDICATION LIST START taking these NEW Home Medications: Lamotrigine Dose: ORAL, TWICE DAILY for Qty: 28 Printed (Lamictal) 100 MG 100 Milligram MOOD STABILIZATION Refills: 0 TABLET Take 1 tablet by mouth twice daily. Last Taken:06/20 Time:0800 Bupropion HCl Dose: ORAL, Every Morning for Qty: 14 Printed (Wellbutrin XL) 150 1 Tablet depression Refills: 0 MG TAB.ER.24H Take 1 tablet by mouth daily. Last Taken:06/20 Time:0800 Escitalopram Oxalate Dose: ORAL, DAILY for Qty: 14 Printed (Lexapro) 10 MG 10 Milligram anxiety/depression Refills: 0 TABLET Take 1 tablet by mouth every morning. Last Taken:06/20 Time:0800 Aripiprazole Dose: ORAL, DAILY @8 AM for Qty: 14 Printed (Abilify) 5 MG 5 Milligram mood stabilization Refills: 0 TABLET Take 1 tablet by mouth every morning. Last Taken:06/20 Time:0800 [place] Carbonate Dose: ORAL, 0800,2200 for mood Qty: 28 Printed ([place] Carbonate) 300 Milligram stabilization Refills: 0 300 MG CAPSULE Take 1 capsule by mouth twice a day. Last Taken:06/20 Time:0800 Melatonin Dose: ORAL, AT BEDTIME for Qty: 14 Printed (Melatonin) 3 MG 3 Milligram insomnia Refills: 0 TABLET Take 1 tablet by mouth at bedtime. Last Taken:06/20 Time:0800 Multiple Neuroleptics: ([X]) Not Applicable OR Document below three failed attempts at monotherapy, or a plan to taper to monotherapy, or augmentation of Clozapine. () Patient's Diet: Regular Patient's Activity: No restrictions DC Disposition: Patient to return to home and family. Recommendations: The patient was advised to please take her medications as prescribed. Recommended that patient continue Lamictal at current dose 100mg BID, until evaluated by [facility] prescriber and advised otherwise. Recommend that patient be tapered off of Lamictal during IOP course, as directed by [facility] prescriber, as [place] was started during inpatient hospitalization for anti-suicidal properties/mood stabilization. She was advised to follow-up with [facility] for continued symptom and medication management. She was advised that in the event of an emergency to call 911/go to nearest emergency department. The patient verbalized understanding of all discharge instructions. Referred To: [address] (t)[phone] Intake appointment scheduled on 06/20/16 at 11:15AM. Copies To: [facility]
--- NOTE | 2016-06-20 09:13 | CP SOUTH PROGRESS NOTE PSYCH ---
Psych (Inpt) Progress Note Progress Note Include the following elements, when applicable: Involvement in the active treatment of the patient with behavioral observations of the patient and the patient's response to the treatment. Review of the ongoing treatment process in the context of the treatment plan. Indication of how multi-disciplinary staff members are carrying out the treatment plan. Plans for future interventions and recommendations for revision of the treatment plan. Liaison with other physicians/providers. Progress Note: [I discussed this patient's progress to date, current mental status, treatment process in the context of the treatment plan, and discharge planning with staff/ team in the daily morning inpatient team meeting. I also met with the patient myself in individual session.] SUBJECTIVE: "I feel really great!" OBJECTIVE: Laboratory Tests 06/19 0600 Toxicology [place] (0.6 - 1.2 mmol/L) 0.5 L Current Medications Sig/Korin Start time Last Medication Dose Route Stop Time Status Admin Acetaminophen/ 1 TAB Q8P PRN 06/14 1545 AC 06/19 Butalbital/Caffeine PO 1547 Aripiprazole 5 MG 0800 06/16 0800 AC 06/20 PO 0838 Bupropion HCl 150 MG DAILY 06/14 1000 AC 06/20 PO 0838 Carisoprodol 350 MG Q6-PRN PRN 06/13 2100 AC 06/18 PO 1611 Clonazepam 0.5 MG Q8P PRN 06/13 2100 AC 06/19 PO 06/20 2058 220 Escitalopram Oxalate 10 MG DAILY 06/18 1000 AC 06/20 PO 0838 Lamotrigine 100 MG BID 06/18 220 AC 06/20 PO 0838 [place] Carbonate 300 MG 0800,0 06/16 2200 AC 06/20 PO 0838 Melatonin 3 MG AT BEDTIME NEED.. 06/19 2199 DC PO Melatonin 3 MG AT BEDTIME 06/19 220 AC 06/19 PO 2201 Melatonin 3 MG AT BEDTIME PRN 06/18 1500 DC 06/18 PO 06/19 215 215 Oxycodone HCl 10 MG Q6-PRN PRN 06/15 2245 AC 06/19 PO 0838 Vital Signs Date Time Temp Pulse Resp B/P Pulse O2 O2 Flow FiO2 Ox Delivery Rate 06/20 0753 97.6 96 93/70 06/19 194 96.6 85 107/60 06/19 1612 75 124/64 06/19 1215 79 130/64 ASSESSMENT: Chart, progress notes, VS, labs, and medication list reviewed. Over the weekend, Dr. Herring spoke with patient's outpatient psychiatrist, who was in agreement to taper the patient off of Lamictal now given that she is on [place] for mood stabilization. Lamictal 250mg QHS was decreased to 100mg BID on 06/18/[address] Herring. Met with the patient on the date of discharge. She presented alert and oriented to person, place, time and situation. Speech was normal in rate, tone and volume. Eye contact was appropriate. Affect was full-range, non-labile. Mood was "really great!" She had no complaints. Patient reported anxiety of 0/10 (10 being the worst) and sadness/depression of 0/10 (10 being the worst). She denied feeling hopeless, helpless, worthless, and guilty. She denied passive and active suicidal ideation, plans and intent. She denied homicidal ideation. She stated and also believed she will not harm herself or others. She identified protective factors of "my " and "my 3 children." She denied auditory and visual hallucinations. Thought process was organized, linear and goal-directed. Thought content was appropriate. Cognition was grossly intact. There was no evidence of paranoia or felipe delusions. Patient appeared motivated to attend [facility] intake today at 11:15AM, and to continue treatment in [facility] program for support and symptom/medication management. Reviewed with patient that Lamictal was decreased yesterday from 250mg QHS to 100mg BID, and recommended continued taper as instructed by [facility] prescriber, since she was started on [place] for mood stabilization. She reported tolerating all medications well and denied untoward medication effects. Patient agreeable to continue taking prescribed medications. Patient reported feeling safe and ready for discharge. PLAN: 1. Discharge today to home and into the care of . 2. F/u with IOP intake today, 06/20/16 at 11:15AM. 3. All discharge prescriptions were printed, reviewed with patient and provided to patient. 4. In the event of an emergency, call 911/go to nearest emergency department. Patient verbalized understanding of all instructions.
--- NOTE | 2016-06-20 10:16 | NUR ---
Discharge Assessment Patient to be discharged to [facility] with f/u at [facility]. Patient has good insight into bipolar disorder and treatment. Meds reviewed with stress on compliance. The patient has a good understanding of her med regime and rationale. Patient denies SI or s/s of depression. REports sleep as improved, future oriented, engaged with peers.
--- NOTE | 2016-06-20 13:39 | SOCIAL WORKER PROG NOTE PSYCH ---
Social Work Progress Note Progress Note Patient to discharge the hospital today. Patient denies SI/HI/AH/VH at present and is eager to return home to her and children today. Patient has agreed and is willing to attend IOP at as a step down from inpatient hospitalization. Patient reports looking forward to starting IOP and making time for herself going forward. Patient is able to contract for safety at this time and has agreed to reach out if she has any unsafe thoughts or feelings. Patient has intake at today at 11:15am. Patients is aware patient will return home today and is in agreement with discharge plan.
== END 2016-06-20 11:23 | DRG 885 ==
LOC: ENRESERVDT → ENRESERV → ENRESERVTM → ERH 18:22 → ERHI 20:40 → CP SOUTH 20:40 → ENPENDDIS 20:40 → CP SOUTH 06-14 01:48
PROVIDERS: Nurse Practitioner Psychiatric/Mental Health; Physician Assistant Surgical; ADMIT Psychiatry & Neurology Psychiatry
DX: F31.9 Bipolar disorder, unspecified (principal); G43.909 Migraine, unspecified, not intractable, without status migrainosus
CPT/HCPCS: 36415; 80307; 93005; 93010; G0480; J3101